=== PATIENT | female | born 1945 | race Caucasian/White ===

== ENCOUNTER 2016-09-04 10:43 | Day surgery (SDC) | payer MEDICARE ==
--- NOTE | ~2016-09-04 | OP ---
Record Of Operation [facility] [address] [place]. [address] NAME: RAMAKRISHNA OATES : 43 STATUS : [facility]#: [id number] AGE: 71 ADM/REG DATE : 09/04/16 MR#: [id number] REPORT SERV DATE: 10/02/16 DICTATED BY: DANISH SIBLEY DATE: 10/02/16 REPORT STATUS : Draft TRANSCRIBED BY: MARIE DATE: 10/02/16 DATE OF PROCEDURE: 09/04/2016 PREOPERATIVE DIAGNOSIS: Right subtalar joint arthritis. POSTOPERATIVE DIAGNOSES: 1. Right subtalar joint arthritis. 2. Osteopenia/osteoporosis. PROCEDURE: Right subtalar joint arthrodesis with internal fixation and bone allografting. ANESTHESIA: General and local anesthetic. ESTIMATED BLOOD LOSS: Minimal. COMPLICATIONS: None. INJECTABLES: Approximately 30 mL of 1:1 mixture of Xylocaine plain and 0.5% Marcaine plain. MATERIALS: Include 6.7 Arthrex cannulated cancellous screw with a washer and cancellous bone allografting, 2-0 and 4-0 Vicryl and 4-0 nylon. PROCEDURE IN DETAIL: Under mild sedation, the patient was brought to the operating room and placed on the operating table in a lateral position. Following general anesthesia, local anesthesia was obtained about the patient's right ankle. The right foot, ankle, and lower leg were scrubbed, prepped, and draped in usual aseptic manner. Attention was directed to the procedure. Procedure #1 is right subtalar joint arthrodesis with internal fixation and cancellous bone allografting. Attention was directed to the lateral aspect of the patient's right lateral ankle where a curvilinear incision was made beginning inferior and posterior to the tip of the lateral malleolus extending toward the direction of the base of the 4th metatarsal. The incision was deepened to subcutaneous tissue with care being taken to identify and retract all vital neurovascular structures. All bleeders were cauterized and ligated as necessary. Blunt dissection was continued down to the level of the peroneal tendon sheath and the extensor brevis muscle belly. At this time, with deep retraction, a linear incision was made along the course of the insertion of the extensor brevis muscle belly and retraction of the peroneal tendon sheath and peroneal tendons was performed. At this time, A Isa's tonsil was resected and a linear capsular and ligamentous incision was made through the CF ligament extending to the sinus tarsi. Soft tissue dissection ensued, and with deep retraction, visualization of the subtalar joint was present with severe arthritic changes present. Severe cartilage loss was present. This was observed after tarsal distraction ensued with a distractor. At this time, visualization of the subtalar joint ensued, and at this time, utilizing a combination of curettage and subchondral drilling and spurring, resection of the remaining cartilaginous tissue and penetration of subchondral plate to the talus and calcaneus was performed. Exposing cancellous bone was appreciated with bone Record Of Operation [facility] [address] [facility] [address] NAME: RAMAKRISHNA OATES : 43 STATUS : [facility]#: [id number] AGE: 71 ADM/REG DATE : 09/04/16 MR#: [id number] REPORT SERV DATE: 10/02/16 DICTATED BY: DANISH SIBLEY DATE: 10/02/16 REPORT STATUS : Draft TRANSCRIBED BY: MARIE DATE: 10/02/16 bleeding present. At this time, a guidewire was then placed through the calcaneus for positioning of the screw, and at this time, the joint itself was packed with cancellous bone allografting. Next, with the distraction removed, the subtalar joint was reduced and the guide pin was then placed into the talus. Next, a partially-threaded cancellous 6.7 screw was placed across the guidewire. Upon penetration across the joint, there was notable soft bone present and severe sinking of the head of the screw. The screw was removed and a washer was placed on the screw. It was repositioned and placed across the joint with good compression noted. The guidewire was removed and excellent positioning was noted on x-ray on calcaneal axial, lateral oblique, and AP views of the ankle and foot. At this time, attention was directed to closure. After general irrigation, the capsular and deep fascia tissues were reapproximated and coapted using 2-0 Vicryl, subcutaneous tissue was reapproximated and coapted using 4-0 Vicryl, skin was reapproximated and coapted using 4-0 nylon in a continuous and interrupted suture technique. A well-padded sterile dressing was placed about the patient's right foot, ankle, and leg. The patient tolerated the procedure and anesthesia well and was transferred to the recovery room with vital signs stable and vascular status intact to all toes. Following a period of postoperative monitoring, the patient will be discharged home with the following written and oral postoperative instructions. 1. Keep dressings clean, dry, and intact. 2. Strict nonweightbearing at all times, to take medications as prescribed and instructed, and will follow up with Dr. Sibley in 7-14 days. VERNON/MARIE Artie Sibley D.P.M. / [id number] CC: Veda Jeff M.D.
[~2016-09-04 10:43] MED LIST: ACTOS45 PO; BIOTIN5 MG PO; COZ25 PO; FISH-EPA1000 MG PO; GLUCOPHAGE1000 MG PO; HALF81 PO; JANUVIA25 MG PO; MOBIC15 MG PO; MULTIVIT/MIN PO; VITAMIN D31000 UNIT PO; ZOCOR10 PO
== END 2016-09-04 18:40 | disposition home or self-care (01) ==
LOC: SDC 10:43
PROVIDERS: Podiatrist Foot & Ankle Surgery
PROC: 0SGH0JZ Fusion of Right Tarsal Joint with Synthetic Substitute, Open Approach (ICD-10-PCS; principal; 2016-09-04 11:45)
DX: M19.071 Primary osteoarthritis, right ankle and foot (principal); I10 Essential (primary) hypertension; E11.9 Type 2 diabetes mellitus without complications; M81.0 Age-related osteoporosis without current pathological fracture; M85.871 Other specified disorders of bone density and structure, right ankle and foot; Z98.51 Tubal ligation status; Z98.890 Other specified postprocedural states
CPT/HCPCS: 80048; 82962; 85014; 85018; 93005; A9270-GY; C1713; J0690; J2270; J2405; J2710; J3010